=== PATIENT | female | born 1935 | race Caucasian/White ===

== ENCOUNTER 2016-08-23 08:10 | Day surgery (SDC) | payer MEDICARE ==
[~2016-08-23] VITALS: Ht 160 cm; Wt 62.4 kg
[~2016-08-23 08:10] MED LIST: CeFAZolin 2 Gm/50 mL D5W IV Premix IV ONE; Dexamethasone 4 mg/mL Inj IVPUSH PRN; EPHEDrine Sulfate 50 mg/mL Inj IVPUSH PRN; HYDROmorphone 1 mg/mL Inj IVPUSH PRN; LEFL20TA18 PO; Lactated Ringer's 1,000 ML IV SCH; Lactated Ringer's 500 ML IV PRN; MetoCLOpramide 5 mg/mL 2 mL Inj IVPUSH PRN; Ondansetron 2 mg/mL 2 mL Inj IVPUSH PRN; PRAV40TA PO; Phenylephrine 10,000 mCg/mL Inj IVPUSH PRN; RHEUMATREX PO; fentaNYL-PF 50 mCg/mL 2 mL Inj IVPUSH PRN
[2016-08-23] MEDS ORDERED: fentaNYL-PF 50 mCg/mL 2 mL Inj ONE (08:11)
[2016-08-23 09:01] VITALS: BP 157/61; PULSE 80; RESP 16; O2SAT 98
--- NOTE | 2016-08-23 09:19 | PCM.HPANE ---
Patient Data Surgeon Admitting Provider: Attending Provider:Leigh Coronado MD Primary Care Physician:Shahbaz Aguilar DO Other Provider:Nicole Sorenseningham Anesthesia Reason for Visit Urge Incontinence, Urgency In Urination Ht/WT & BMI Height (Feet): 5 Height (Inches): 3 Weight (Kilograms): 62.4 Body Mass Index 24.00 Allergies Coded Allergies: meperidine (Verified Allergy, Unknown, UNKNOWN, 08/22/16) Past Anesthesia History Anesthesia History: Denies:: Anesthesia Reactions, Malignant Hyperthermia Diabetes History Hx Diabetes?: No MRSA MRSA: No Medications Reported Medications [Rheumatrex] No Conflict Check5 Mg PO WEEKLKY 08/22/16 Pravastatin 40 Mg Trpiod62 Mg PO DAILY Ref 0 08/22/16 Leflunomide 20 Mg Vyubio51 Mg PO DAILY 08/22/16 Discontinued Reported Medications Mirabegron ER (Myrbetriq)25 Mg Rttllf38-79 Mg PO DAILY 08/22/16 History History of ENT Problems?: Yes HEENT History: Denies:: Abnormal Airway Cataracts Difficult Intubation Dysphagia Glaucoma Hearing Problem Sinus Problem TMJ Denture Type: None Teeth Condition: Within Normal Limits Other HEENT Pertinent History: S/P WISDOM TEETH EXTRACTIONS,T&A Hx of Heart Problems?: No Cardiovascular History: Denies:: Heart Murmur Hypertension (HYPERLIPIDEMIA) Other History/Comments cARDIAC ros NEGATIVE Hx of Respiratory Problem?: Yes Respiratory History: Positive for:: Dyspnea (PHAN) Denies:: Use of C-PAP Machine Hx Neurologic Problems?: No Hx of GI Problems?: No Other GI Pertinent History: S/P APPY,HERNIA RPR C/OF CONSTIPATION Hx of Problems?: Yes Other Pertinent History: C/OF NOCTURIA,DECREASED STREAM,FREQUENCY,DRIBBLING Female Hx: Positive for:: Problems with Breasts? (S/P BREAST BX) Denies:: Currently Skin History: Denies:: History Skin Disorders? 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) Other History/Comment Rheumatoid arthritis, no involvemt of neck or jaw Hx of Psycho/Social Problems?: No Hx Surgeries?: Yes (T&A,WISDOM TEETH,CLARISSA APPY,HERNIA RPR,BREAST BX,IRMA) Hx Any Other Health Problems?: Yes Other History: Denies:: Cancer Endocrine Disease Hospitalization Thyroid Disease Hx Diabetes: No Hx Alcohol Use: NoHx Substance Use: NoHave You Smoked inLast 12 mo: No Stop/Bang Treated for Sleep Apnea?: No Do You Have a CPAP Machine?: No S-Snoring: Do You Snore Loudly: No T-Tired: feel tired, fatigued: Yes O-Obsered: Observed not breath: No P-Blood Pressure: treated: No B- Body Mass Index > 35 kg/m2: No A- Age over 50: Yes N- Neck Large Circumference: No G- Gender Male: No BRISEYDA Total Score: 2 Risk Assessment Category Category 1A: Patient has history of documented sleep apnea, and HAS NOT received any narcotic, sedative or anesthesia administration during this stay. Category 1B: Patient has history of documented sleep apnea, and HAS received any narcotic , sedative or anesthesia administration during this stay Category 2: Patient has SUSPECTED Obstructive Sleep Apnea, and HAS received any narcotic , sedative or anesthesia administration during this stay. Category 3: Patient has SUSPECTED Obstructive Sleep Apnea and HAS NOT received narcotic, sedative or anesthesia administration during this stay. Category 4: Outpatient in Procedural Areas with known sleep apnea or who screen positive for High Risk via the STOP/BANG questionnaire. Exam Exam Vital Signs Vital Signs Date Time Temp Pulse Resp B/P Pulse Ox O2 Delivery O2 Flow Rate FiO2 08/23/16 09:01 35.7 80 16 157/61 98 Room Air General Appearance: Alert, Oriented X3, Cooperative, No Acute Distress HEENT/AIRWAY: MP 2 Lungs: Clear to Auscultation, Normal Air Movement Heart: Exam Unremarkable, Regular Rate/Rhythm, No Murmurs/Rubs/Gallops Plan Impression Patient chart reviewed, patient interviewed and anesthestic plan with risks, benefits, and alternatives discussed, and informed consent obtained. ASA Physical Status: ASA2 Mod Systemic Disease Anesthetic Plan: MAC Bene/Risks/Altern/Consents: Yes HP Complete Prior to Induction: Yes Shahbaz De Leon MD Aug 23, 2016 09:19
[2016-08-23] MEDS ORDERED: Bupivacaine-MPF 0.5% W/EPI 30 mL Inj INFILTRATE ONE (09:40)
[2016-08-23] MEDS ORDERED: Gentamicin 40 mg/mL 2 mL Inj IRRIGATION ONE (09:40)
[2016-08-23] MEDS ORDERED: Lactated Ringer's 1,000 ML IV ONE (09:41)
[2016-08-23 10:55] VITALS: BP 152/56; PULSE 81; RESP 16; O2SAT 97
[2016-08-23] MEDS ORDERED: Ondansetron 8 mg ODT Tablet PO PRN (11:00)
[2016-08-23] MEDS ORDERED: HYDROcodone-APAP 5-325 mg Tablet PO PRN (11:00)
[2016-08-23 11:42] VITALS: BP 151/59; PULSE 78; RESP 17; O2SAT 98
--- NOTE | 2016-08-23 13:49 | PCM.ANEP1 ---
Post Anesthesia PACU Phase 1 Assessment Vital Signs Vital Signs Date Time Temp Pulse Resp B/P Pulse Ox O2 Delivery O2 Flow Rate FiO2 08/23/16 11:42 78 17 151/59 98 Room Air 08/23/16 10:55 36.3 81 16 152/56 97 Room Air 08/23/16 09:01 35.7 80 16 157/61 98 Room Air Anesthetic Administered: MAC Level of Alertness: Awake, talking JACOB's with Equal Strength: Yes Pain: No Nausea or Vomiting: No CV Function & Hydration Stable: Yes Airway Device: Oxygen Delivery: Room Air Lungs: Clear to Auscultation, Normal Air Movement Dermatome Level: Full Sensation PACU Phase 2 Assessment Complications: No Follow up Care: No Patient Instructions Provided: N/A Shahbaz De Leon MD Aug 23, 2016 13:49
--- NOTE | 2016-08-24 08:58 | OP ---
[address] [address] OPERATIVE REPORT PATIENT: ANNETTE EWING : 1935 MR#: [id number] ADMIT: 08/23/2016 JOB ID: [id number] DATE OF SURGERY: 08/23/2016 SURGEON: Leigh Coronado M.D. PROCEDURE: Stage 1 InterStim implant to include transforaminal placement of a S3 sacral neuro electrode and fluoroscopy imaging guidance. ANESTHESIA: Local with monitored general anesthesia care, IV sedation. PREOPERATIVE DIAGNOSIS(ES): Urge urinary incontinence, treatment refractory. POSTOPERATIVE DIAGNOSIS(ES): Urge urinary incontinence, treatment refractory. INDICATIONS: The patient is a 80-year-old woman with a very longstanding history of very bothersome urge urinary incontinence, urgency, precluding her from getting out and remaining active and causing her to soak large pads. She wished to proceed with testing for sacral nerve modulation to see if this would help her. PROCEDURE IN DETAIL: After appropriate informed consent was obtained, the patient was brought to the operating room. She received IV antibiotics prior to onset of the procedure. She was made comfortable in the prone position. All pressure points carefully padded. Cleaned, prepped, and draped in the usual sterile fashion. She was given IV sedation and some IV pain medication. Fluoroscope was brought in and marked out the bony landmarks including the sacral foramina and the medial borders. A half/half mixture of lidocaine and Marcaine with epinephrine was used for local anesthesia. We used a finder needle to traverse the left S3 foramen. Had good responses of toe and Jordyn fairly early on. Converted this over to a quadripolar electrode. Had excellent responses well below 1 on all four electrodes of Jordyn and toe, not easily palpable to the patient and comfortable. The access sheath was removed and the tines helped fix the lead in place. We irrigated this out. We marked our spot for a pocket also on the left side at the patient's request underneath the iliac crest. Transverse incision was made using local anesthesia once again, sharply, bluntly with electrocautery and created a pocket, brought the extension wire out into the pocket site. Made connections to the disposable extension wire kit. The extension wire itself then was tunneled out to the patient's right side as far as possible from the permanent lead in the pocket site. All the wounds themselves were irrigated out copiously with vancomycin and gentamicin solution. Hemostasis was good. We closed with a layer of 2-0 Vicryl suture, a layer of 4-0 Monocryl in the skin and benzoin and Steri-Strips. The patient tolerated the procedure very well, was awakened and taken back to the one-day surgery area as she has not been completely asleep.
== END 2016-08-23 23:59 | disposition home or self-care (01) ==
LOC: SAS 08:10
PROVIDERS: ATTEND Urology
DX: N39.41 Urge incontinence (principal); R35.0 Frequency of micturition; R35.1 Nocturia; N32.81 Overactive bladder; E78.5 Hyperlipidemia, unspecified; Z87.891 Personal history of nicotine dependence
CPT/HCPCS: 64581; 76000; C1778; J0690; J1580; J2250; J3010; J7120

== ENCOUNTER 2016-09-01 08:03 | Day surgery (SDC) | payer MEDICARE ==
[~2016-09-01] VITALS: Ht 160 cm; Wt 62.8 kg
[~2016-09-01 08:03] MED LIST changes: -Dexamethasone 4 mg/mL Inj IVPUSH PRN; -EPHEDrine Sulfate 50 mg/mL Inj IVPUSH PRN; -HYDROmorphone 1 mg/mL Inj IVPUSH PRN; -Lactated Ringer's 1,000 ML IV SCH; -Lactated Ringer's 500 ML IV PRN; -MetoCLOpramide 5 mg/mL 2 mL Inj IVPUSH PRN; -Ondansetron 2 mg/mL 2 mL Inj IVPUSH PRN; -Phenylephrine 10,000 mCg/mL Inj IVPUSH PRN; -fentaNYL-PF 50 mCg/mL 2 mL Inj IVPUSH PRN; +orencia INJ
[2016-09-01] MEDS ORDERED: fentaNYL-PF 50 mCg/mL 2 mL Inj ONE (08:04)
[2016-09-01] MEDS: Lactated Ringer's 1,000 ML IV SCH ×2 (08:21→11:09)
[2016-09-01] MEDS ORDERED: IBUP-1827 PO (08:27)
[2016-09-01 08:33] VITALS: BP 135/57; PULSE 87; RESP 17; O2SAT 96
--- NOTE | 2016-09-01 10:55 | PCM.HPANE ---
Patient Data Surgeon Admitting Provider: Attending Provider:Leigh Coronado MD Primary Care Physician:Toña Cuello MD Other Provider:Nicole Sorenseningham Anesthesia Reason for Visit Urge Incontinence, Urgency In Urination Ht/WT & BMI Height (Feet): 5 Height (Inches): 3 Weight (Kilograms): 62.8 Body Mass Index 24.00 Allergies Coded Allergies: meperidine (Verified Allergy, Unknown, UNKNOWN, 08/22/16) Past Anesthesia History Anesthesia History: Denies:: Abnormal Airway, Anesthesia Reactions, Difficult Intubation, Malignant Hyperthermia Diabetes History Hx Diabetes?: No MRSA MRSA: No Medications Home Meds Incl Beta Jaclyn: No Reported Medications Ibuprofen 600 Mg Weoscp249 Mg PO QID PRN For Pain Ref 0 09/01/16 [orencia] No Conflict CheckUnknown Dose INJ monthly 08/29/16 [Rheumatrex] No Conflict Check5 Mg PO WEEKLKY 08/22/16 Pravastatin 40 Mg Oqhcgy96 Mg PO DAILY Ref 0 08/22/16 Leflunomide 20 Mg Bhxspi30 Mg PO DAILY 08/22/16 History History of ENT Problems?: Yes HEENT History: Denies:: Abnormal Airway Cataracts Difficult Intubation Dysphagia Hearing Problem Sinus Problem TMJ Denture Type: None Teeth Condition: Within Normal Limits Hx of Heart Problems?: No Cardiovascular History: Denies:: Heart Murmur Hypertension Hx of Respiratory Problem?: No Respiratory History: Positive for:: Dyspnea (PHAN) Denies:: Oxygen Administration Use of C-PAP Machine Hx Neurologic Problems?: No Hx of GI Problems?: Yes Hx of Problems?: Yes Female Hx: Positive for:: Problems with Breasts? (S/P BREAST BX) Denies:: Currently Skin History: Denies:: History Skin Disorders? Pressure Ulcers Hx Musculoskeletal Problems?: Yes Musculoskeletal History: Positive for:: Degenerative Joint Joint Replacement (S/P IRMA) Rheumatoid Arthritis (monthly injections of Orencia) Hx of Psycho/Social Problems?: No Hx Surgeries?: Yes (T&A,WISDOM TEETH,CLARISSA APPY,HERNIA RPR,BREAST BX,IRMA) Hx Any Other Health Problems?: Yes Other History: Denies:: Cancer Endocrine Disease Hospitalization Thyroid Disease Hx Diabetes: No Hx Alcohol Use: NoHx Substance Use: No Smoking Status: Former Smoker Have You Smoked inLast 12 mo: No Stop/Bang Treated for Sleep Apnea?: No Do You Have a CPAP Machine?: No P-Blood Pressure: treated: No B- Body Mass Index > 35 kg/m2: No A- Age over 50: Yes N- Neck Large Circumference: No G- Gender Male: No Risk Assessment Category Category 1A: Patient has history of documented sleep apnea, and HAS NOT received any narcotic, sedative or anesthesia administration during this stay. Category 1B: Patient has history of documented sleep apnea, and HAS received any narcotic , sedative or anesthesia administration during this stay Category 2: Patient has SUSPECTED Obstructive Sleep Apnea, and HAS received any narcotic , sedative or anesthesia administration during this stay. Category 3: Patient has SUSPECTED Obstructive Sleep Apnea and HAS NOT received narcotic, sedative or anesthesia administration during this stay. Category 4: Outpatient in Procedural Areas with known sleep apnea or who screen positive for High Risk via the STOP/BANG questionnaire. Exam Exam Vital Signs Vital Signs Date Time Temp Pulse Resp B/P Pulse Ox O2 Delivery O2 Flow Rate FiO2 09/01/16 08:33 36.0 87 17 135/57 96 Room Air General Appearance: Alert, Oriented X3, Cooperative, No Acute Distress HEENT/AIRWAY: MP 2 Lungs: Clear to Auscultation, Normal Air Movement Heart: Exam Unremarkable, Regular Rate/Rhythm, No Murmurs/Rubs/Gallops Meds/Labs/Diagnostics Admission Meds Current Medications Lactated Ringer's (Lr) 1,000 ml @ 120 mls/hr Q8H20M IV Last administered on t 08:21; Start 09/01/16 at 05:00; Stop 09/01/16 at 13:19 Plan Impression Patient chart reviewed, patient interviewed and anesthestic plan with risks, benefits, and alternatives discussed, and informed consent obtained. NPO per Anesth. Guidelines: Yes ASA Physical Status: ASA2 Mod Systemic Disease Anesthetic Plan: MAC Bene/Risks/Altern/Consents: Yes HP Complete Prior to Induction: Yes Shahbaz De Leon MD Sep 01, 2016 10:55
[2016-09-01] MEDS ORDERED: Gentamicin 40 mg/mL 2 mL Inj IRRIGATION ONE (11:09)
[2016-09-01] MEDS ORDERED: Vancomycin 1,000 mg Inj IRRIGATION ONE (11:09)
[2016-09-01] MEDS ORDERED: Bupivacaine-MPF 0.5% W/EPI 30 mL Inj INJ ONE (11:25)
[2016-09-01] MEDS ORDERED: Lactated Ringer's 1,000 ML IV SCH (11:51)
[2016-09-01] MEDS ORDERED: Lactated Ringer's 500 ML IV PRN (11:51)
[2016-09-01] MEDS ORDERED: Dexamethasone 4 mg/mL Inj IVPUSH PRN (11:55)
[2016-09-01] MEDS ORDERED: MetoCLOpramide 5 mg/mL 2 mL Inj IVPUSH PRN (11:55)
[2016-09-01] MEDS ORDERED: Ondansetron 8 mg ODT Tablet PO PRN (11:55)
[2016-09-01] MEDS ORDERED: fentaNYL-PF 50 mCg/mL 2 mL Inj IVPUSH PRN (11:55)
[2016-09-01] MEDS ORDERED: EPHEDrine Sulfate 50 mg/mL Inj IVPUSH PRN (11:55)
[2016-09-01] MEDS ORDERED: HYDROcodone-APAP 5-325 mg Tablet PO PRN (11:55)
[2016-09-01] MEDS ORDERED: Ondansetron 2 mg/mL 2 mL Inj IVPUSH PRN (11:55)
[2016-09-01] MEDS ORDERED: Phenylephrine 10,000 mCg/mL Inj IVPUSH PRN (11:55)
[2016-09-01] MEDS ORDERED: HYDROmorphone 1 mg/mL Inj IVPUSH PRN (11:55)
[2016-09-01 11:58] VITALS: BP 141/45; PULSE 95; RESP 15; O2SAT 93
[2016-09-01 12:34] VITALS: BP 132/60; PULSE 89; RESP 16; O2SAT 96
--- NOTE | 2016-09-02 15:08 | OP ---
[address] [address] OPERATIVE REPORT PATIENT: ANNETTE EWING : 1935 MR#: [id number] ADMIT: 09/01/2016 JOB ID: [id number] DATE OF SURGERY: 09/01/2016 PROCEDURE: Stage 2 InterStim implant to include 1 IPG implantation and 2 complex initial programming and setup of the neurostimulator device. SURGEON: Leigh Coronado MD ANESTHESIA: Local with monitored anesthesia care and IV sedation. PREOPERATIVE DIAGNOSIS(ES): Intractable urinary urgency, frequency, urge incontinence. POSTOPERATIVE DIAGNOSIS(ES): Intractable urinary urgency, frequency, urge incontinence. INDICATIONS: The patient is a 73-year-old woman, otherwise active, with longstanding history of severe urinary urgency, frequency, urge incontinence, wishing to proceed to third line therapy having failed numerous medications and also behavioral changes. She underwent testing with a left-sided lead and left-sided pocket that was placed on August 23, 2016. She has had very very good results, with well over 90% improved pad usage, and incontinence episodes as well as urgency and frequency. Wishing to proceed with pulse generator implantation. PROCEDURE IN DETAIL: After appropriate informed consent was obtained, the patient was brought to the operating room. She received IV antibiotics with Ancef prior to the onset of the procedure. She was made comfortable in the prone position. All pressure points were carefully padded. Cleaned, prepped, and draped in the usual sterile fashion. She had IV sedation and some pain medications per Anesthesia. A half/half mixture of lidocaine and Marcaine with epinephrine was used to infiltrate the area overlying the left-sided buttock pocket. This was then opened up sharply, bluntly with electrocautery. We found the distal end of the extension wire and this was cut and allowed to fall outside the patient's body. The internalized portion was from the distal end of the lead and handed off. The pocket itself was increased in size to accept the size of the [employer] 2 IPG. This was done sharply and bluntly with electrocautery. Electrocautery was used for hemostasis, which was quite good. We irrigated the pocket out copiously with the antibiotic solution, which was vancomycin and gentamicin in sterile water. We then attached the dried and cleaned distal end of the sacral neural electrode into the IPG. A ratcheted screwdriver was used to make our attachments. Gentle tug revealed a good connection. This fit nicely into the pocket. It was placed in there and then we continued irrigating with antibiotic solution. Then, the pocket itself was closed in layers with a layer of 2-0 Vicryl suture, a layer of 4-0 Monocryl, and a layer of Dermabond. Hemostasis was excellent. Cosmetic appearance was good. The patient was comfortable and was taken awake back to the one-day surgery area. Once she was a little bit further awake the device itself was turned on and found to be operating in normal conditions. It was set up initially with a rate of 14, pulse width of 210. Program one was set up as 0 negative and 3 positive. Program two was set up with 1 negative and 3 positive. Program three is 2 negative and 0 positive. Program four is 3 negative and 0 positive. She felt the sensation in the appropriate locations. The device was functioning normally. JOHN
== END 2016-09-01 23:59 | disposition home or self-care (01) ==
LOC: SAS 08:03
PROVIDERS: ATTEND Urology
DX: N39.41 Urge incontinence (principal); R35.0 Frequency of micturition; R35.1 Nocturia; N32.81 Overactive bladder; E78.5 Hyperlipidemia, unspecified; Z87.891 Personal history of nicotine dependence
CPT/HCPCS: 64590; 95972; C1767; J0690; J1580; J2250; J3010; J3370; J7120